=== PATIENT | male | born 1990 | race Caucasian/White ===

== ENCOUNTER 2019-10-28 18:17 | Emergency (ER) | payer OTHER ==
[~2019-10-28] VITALS: Ht 185.4 cm; Wt 77.1 kg
[2019-10-28 19:40] LABS: ABSOLUTE NEUTROPHILS 12.4 thou/uL (1.4-8.2); BASOPHILS 0.6 % (0.0-2.0); HEMOGLOBIN 15.4 gm/dL (14.0-18.0); MCH 31.1 pg (26.0-34.0); MCHC 34.2 g/dL (28.0-37.0); MCV 91.2 fL (80.0-100.0); MONOCYTES 5.7 % (1.0-8.0); PLATELET COUNT 307 thou/uL (150-400); POLYS 79.7 % (36.0-66.0); RBC 4.94 mil/uL (4.50-6.00); RDW 12.4 % (10.5-14.5); WBC 15.6 thou/uL (4.0-11.0)
[2019-10-28 19:51] LABS: ANION GAP 12 mmol/L (7-16); BUN 9 mg/dL (7-18); CALCIUM 9.5 mg/dL (8.5-10.1); CHLORIDE 102 mmol/L (98-107); CO2 26 mmol/L (21-32); CREATININE 1.1 mg/dL (0.7-1.3); GLUCOSE 82 mg/dL (74-106); POTASSIUM 4.3 mmol/L (3.5-5.1); SODIUM 140 mmol/L (136-145)
[2019-10-28 19:57] LABS: ALBUMIN 4.9 g/dL (3.4-5.0); SALICYLATE < 2.8 mg/dL (2.8-20.0); SGOT 21 U/L (15-37); SGPT 36 U/L (30-65); TOTAL BILIRUBIN 1.4 mg/dL (0.2-1.0); TOTAL PROTEIN 8.6 g/dL (6.4-8.2)
[2019-10-28 20:39] LABS: URINE BILIRUBIN NEGATIVE (Negative); URINE BLOOD NEGATIVE (Negative); URINE CLARITY CLEAR; URINE COLOR YELLOW; URINE GLUCOSE-RANDOM* NEGATIVE (Negative); URINE KETONES 3+ (Negative); URINE LEUKOCYTES-REFLEX NEGATIVE (Negative); URINE NITRITE-REFLEX NEGATIVE (Negative); URINE PROTEIN (DIPSTICK) NEGATIVE (Negative); URINE SPECIFIC GRAVITY 1.015 (1.005-1.035); URINE UROBILINOGEN 0.2 E.U./dl (0.2-1.0)
[2019-10-28 20:47] LABS: AMP/METHAMP POSITIVE (Negative); BARBITURATES Negative (Negative); BENZODIAZEPINES Negative (Negative); COCAINE POSITIVE (Negative); METHADONE Negative (Negative); OPIATES Negative (Negative); PCP Negative (Negative)
--- NOTE | 2019-10-29 07:46 | EKG ---
[facility] [place] [address] ELECTROCARDIOGRAM REPORT Name: SIMONE ANGELO Room #: REG [facility]#: [id number] Admission: 10/28/19 Attend Phys: Discharge: Date of : 89 Report #: [id number] THIS REPORT FOR: cc: HAZEL - [place] family physician/PCP HA[facility] - [place] family physician/PCP Raffaele Schulz MD [facility] THIS REPORT FOR: //name// [facility] ED Test Date: 2019-10-28 Test Time: 19:44:14 Pat Name: SIMONE ANGELO Department: Room: Gender: Lubrication Worker: : 1990 Requested By: Kari Bautista Order Number: [id number] MD: Raffaele Schulz Measurements Intervals [place] Rate: 102 P: 36 NC: 153 QRS: 37 QRSD: 90 T: -11 QT: 356 QTc: 464 Interpretive Statements Sinus tachycardia Nonspecific ST and T wave abnormality No previous ECG available for comparison Electronically Signed On 10-29-2019 7:46:01 CDT by Raffaele Schulz [email or web address] <ELECTRONICALLY SIGNED> By: Raffaele Schulz MD, [facility] 10/29/19 0746 D: [id number] Raffaele Schulz MD, FACC /EPI
[2019-10-29 21:07] VITALS: BP 114/67
--- NOTE | 2019-10-30 07:48 | EKG ---
[facility] [place] [address] ELECTROCARDIOGRAM REPORT Name: SIMONE ANGELO Room #: DEP [facility]#: [id number] Admission: 10/28/19 Attend Phys: Discharge: 10/29/19 Date of : [birth year] Report #: [id number] THIS REPORT FOR: cc: HAZLE - [place] family physician/PCP HAZEL - [place] family physician/PCP Raffaele Schulz MD [facility] THIS REPORT FOR: //name// [facility] ED Test Date: 2019-10-29 Test Time: 16:44:12 Pat Name: SIMONE ANGELO Department: Room: Gender: Supply Assistant: : 1990 Requested By: John Alcantar Order Number: [id number] MD: Raffaele Schulz Measurements Intervals [place] Rate: 73 P: 49 NH: 142 QRS: 53 QRSD: 98 T: 22 QT: 389 QTc: 429 Interpretive Statements Sinus rhythm Normal Compared to ECG 10/28/2019 19:44:14 Sinus tachycardia no longer present ST (T wave) deviation no longer present Electronically Signed On 10-30-2019 7:48:24 CDT by Raffaele Schulz [email or web address] <ELECTRONICALLY SIGNED> By: Raffaele Schulz MD, [facility] 10/30/19 0748 [id number] Raffaele Schulz MD, [facility] /EPI
== END 2019-10-29 21:08 | disposition home or self-care (01) ==
LOC: ER 18:17
PROVIDERS: Physician Assistant
DX: F29 Unspecified psychosis not due to a substance or known physiological condition (principal); F12.10 Cannabis abuse, uncomplicated; F14.10 Cocaine abuse, uncomplicated; R45.851 Suicidal ideations; G47.00 Insomnia, unspecified; R07.9 Chest pain, unspecified; R19.7 Diarrhea, unspecified; F17.210 Nicotine dependence, cigarettes, uncomplicated; Z20.828 Contact with and (suspected) exposure to other viral communicable diseases; Z98.890 Other specified postprocedural states

== ENCOUNTER 2020-03-10 08:18 | Emergency (ER) | payer OTHER ==
[~2020-03-10] VITALS: Ht 172.7 cm; Wt 68.0 kg
[2020-03-10 08:54] LABS: ANION GAP 16 mmol/L (7-16); BUN 19 mg/dL (7-18); CALCIUM 9.5 mg/dL (8.5-10.1); CHLORIDE 96 mmol/L (98-107); CO2 20 mmol/L (21-32); GLUCOSE 96 mg/dL (74-106); POTASSIUM 3.8 mmol/L (3.5-5.1); SODIUM 132 mmol/L (136-145)
[2020-03-10 09:00] LABS: ALBUMIN 4.1 g/dL (3.4-5.0); SALICYLATE 3.7 mg/dL (2.8-20.0); SGOT 61 U/L (15-37); SGPT 36 U/L (16-63); TOTAL BILIRUBIN 1.6 mg/dL (0.2-1.0); TOTAL PROTEIN 7.8 g/dL (6.4-8.2)
[2020-03-10 09:06] LABS: ABSOLUTE NEUTROPHILS 11.1 thou/uL (1.4-8.2); BASOPHILS 0.4 % (0.0-2.0); EOSINOPHILS 0.8 % (0.0-3.0); HEMATOCRIT 42.3 % (42.0-52.0); LYMPHOCYTES 11.5 % (24.0-44.0); MCH 29.1 pg (26.0-34.0); MCHC 33.1 g/dL (28.0-37.0); MCV 88.1 fL (80.0-100.0); PLATELET COUNT 252 thou/uL (150-400); POLYS 80.3 % (36.0-66.0); RBC 4.81 mil/uL (4.50-6.00); RDW 12.5 % (10.5-14.5); WBC 13.8 thou/uL (4.0-11.0)
[2020-03-10] MEDS ORDERED: PENICILLIN VK500 M1 PO (09:53)
[2020-03-10 11:20] VITALS: BP 136/71
== END 2020-03-10 11:32 | disposition home or self-care (01) ==
LOC: ER 08:18
PROVIDERS: Emergency Medicine
DX: S02.5XXB Fracture of tooth (traumatic), initial encounter for open fracture (principal); S00.83XA Contusion of other part of head, initial encounter; Z98.890 Other specified postprocedural states; Y04.0XXA Assault by unarmed brawl or fight, initial encounter; Y93.89 Activity, other specified; Y92.89 Other specified places as the place of occurrence of the external cause; Y99.9 Unspecified external cause status